=== PATIENT | male | born 1955 | race Hispanic/Latino ===

== ENCOUNTER 2018-09-02 12:55 | Outpatient (CLI) | payer BC ==
--- NOTE | 2018-09-02 15:54 | BD ---
DEXA BONE DENSITY EXAM: HISTORY: A 62-year-old male with osteopenia. The patient has had bilateral hip replacements. COMPARISON: None. FINDINGS: Lumbar Spine: BMD (g/cm2) L1 1.167 T-Score: 0.9 L2 1.243 T-Score: 1.4 L3 1.317 T-Score: 1.9 L4 1.284 T-Score: 1.8 L1-L4 1.255 T-Score: 1.5 Distal third of left forearm: 0.966 T-Score: 2.8 Total distal left forearm: 0.829 T-Score:-2.7 Impression: Normal bone mineral density. POS: TPC
== END 2018-09-02 12:56 | disposition home or self-care (01) ==
LOC: BICMAMMO 12:55
PROVIDERS: ATTEND Family Medicine
DX: Z13.820 Encounter for screening for osteoporosis (principal)
CPT/HCPCS: 77080

== ENCOUNTER 2022-01-08 12:14 | Outpatient (CLI) | payer BC | END 2022-01-08 12:15 | disposition home or self-care (01) | LOC: TBSIIMAG 12:14 | PROVIDERS: ATTEND Neurological Surgery | DX: M47.812 Spondylosis without myelopathy or radiculopathy, cervical region (principal) | CPT/HCPCS: 72040 ==

== ENCOUNTER 2023-06-02 08:05 | Day surgery (SDC) | payer BC ==
[2023-06-01 11:29] VITALS: BMI 28.4
[2023-06-02] MEDS ORDERED: Oxymetazoline HCl 0.05% (30 ML BOT) ONE ×2 (08:36→09:00)
[2023-06-02 08:51] LABS: #Basophils 0.1 thou/uL (0.0-0.2); #Monocytes 0.6 thou/uL (0.11-0.59); #Neutrophils 3.9 thou/uL (1.40-6.50); %Basophils 1.2 % (0.0-1.0); %Eosinophils 12.9 % (0.0-10.0); %Lymphocytes 30.3 % (21.0-51.0); %Monocytes 7.2 % (0.0-10.0); %Neutrophils 48.2 % (42.0-75.0); Hematocrit 43.3 % (42.0-52.0); Hemoglobin 14.5 g/dL (14.0-18.0); Mean Corpuscular HGB CONC 33.5 g/dL (32.0-36.0); Mean Corpuscular Volume 92.7 fl (78.0-98.0); Mean Platelet Volume 9.1 fL (7.4-10.4); Platelet Count 221 10x3/uL (130-400); RBC Distribution Width 13.2 % (11.5-14.5); Red Blood Cell (RBC) Count 4.67 mill/uL (4.70-6.10)
[2023-06-02] MEDS ORDERED: Acetaminophen 500 MG TAB ONE (08:55)
[2023-06-02] MEDS ORDERED: Lidocaine 1% (PF) 30 ML VIAL ONE (09:00)
[2023-06-02] MEDS ORDERED: Bacitracin Zinc Ointment 30 gm TUBE ONE (09:00)
[2023-06-02] MEDS ORDERED: EPINEPHrine 1 MG/ML AMP ONE (09:00)
[2023-06-02 09:14] LABS: Anion Gap 13 mmol/L (10-20); BUN (Urea Nitrogen) 13 mg/dL (8.4-25.7); Calc. Creatinine Clearance 102 mL/min (70-130); Calcium 9.9 mg/dL (7.8-10.44); Carbon Dioxide 28 mmol/L (23-31); Chloride 104 mmol/L (98-107); Estimated GFR 98; Glucose 112 mg/dL (80-115); Potassium 4.3 mmol/L (3.5-5.1); Sodium 141 mmol/L (136-145)
[2023-06-02] MEDS ORDERED: fentaNYL PF 100 MCG/2 ML SYRINGE ONE (09:25)
[2023-06-02] MEDS ORDERED: Lidocaine 1% PF 5 ML VIAL ONE (09:59)
[2023-06-02] MEDS ORDERED: Glycopyrrolate 0.2 MG/ML 5 ML SYRINGE ONE (09:59)
[2023-06-02] MEDS ORDERED: Rocuronium Bromide 10 MG/ML (10ML VIAL) ONE (09:59)
[2023-06-02] MEDS ORDERED: NEOSTIGMINE 3 MG/3 ML SYR 3 MG/3 ML SYRINGE ONE (09:59)
[2023-06-02] MEDS ORDERED: Ondansetron PF 4 MG/2 ML Vial ONE (09:59)
[2023-06-02] MEDS ORDERED: PROPOFOL 200 MG/20 ML VIAL ONE (09:59)
[2023-06-02] MEDS ORDERED: Dexamethasone 20 MG/5 ML VIAL ONE (09:59)
[2023-06-02] MEDS ORDERED: HYDROcodone/Acetaminophen 5/325 mg Tablet ONE (12:16)
== END 2023-06-02 12:43 | disposition home or self-care (01) ==
LOC: SDC 08:05
PROVIDERS: ATTEND Otolaryngology Plastic Surgery within the Head & Neck
PROC: 09BU8ZZ Excision of Right Ethmoid Sinus, Via Natural or Artificial Opening Endoscopic (ICD-10-PCS; principal; 2023-06-02)
PROC: 09BM8ZZ Excision of Nasal Septum, Via Natural or Artificial Opening Endoscopic (ICD-10-PCS; principal; 2023-06-02)
PROC: 09BW8ZZ Excision of Right Sphenoid Sinus, Via Natural or Artificial Opening Endoscopic (ICD-10-PCS; principal; 2023-06-02)
PROC: 09BX8ZZ Excision of Left Sphenoid Sinus, Via Natural or Artificial Opening Endoscopic (ICD-10-PCS; principal; 2023-06-02)
PROC: 09BT8ZZ Excision of Left Frontal Sinus, Via Natural or Artificial Opening Endoscopic (ICD-10-PCS; principal; 2023-06-02)
PROC: 09BS8ZZ Excision of Right Frontal Sinus, Via Natural or Artificial Opening Endoscopic (ICD-10-PCS; principal; 2023-06-02)
PROC: 09BL8ZZ Excision of Nasal Turbinate, Via Natural or Artificial Opening Endoscopic (ICD-10-PCS; principal; 2023-06-02)
PROC: 09BR8ZZ Excision of Left Maxillary Sinus, Via Natural or Artificial Opening Endoscopic (ICD-10-PCS; principal; 2023-06-02)
PROC: 09BQ8ZZ Excision of Right Maxillary Sinus, Via Natural or Artificial Opening Endoscopic (ICD-10-PCS; principal; 2023-06-02)
PROC: 09BV8ZZ Excision of Left Ethmoid Sinus, Via Natural or Artificial Opening Endoscopic (ICD-10-PCS; principal; 2023-06-02)
DX: J32.4 Chronic pansinusitis (principal); J34.2 Deviated nasal septum; J34.3 Hypertrophy of nasal turbinates; J33.9 Nasal polyp, unspecified; J45.909 Unspecified asthma, uncomplicated; H61.23 Impacted cerumen, bilateral; Z87.891 Personal history of nicotine dependence
CPT/HCPCS: 80048; 85025; 93005; 93010; J0171; J1100; J2001; J2405; J2704